=== PATIENT | female | born 1995 | race Caucasian/White ===

== ENCOUNTER 2018-02-16 14:21 | Emergency (ER) | payer OTHER, MEDICAID ==
[~2018-02-16] VITALS: Ht 170.2 cm; Wt 61.7 kg
[2018-02-16] MEDS ORDERED: LEXAPRO20 MG PO (14:43)
[2018-02-16] MEDS ORDERED: SEROQUEL 50 MG50 MG PO (14:43)
[2018-02-16] MEDS ORDERED: XANAX1 MG PO (14:43)
[2018-02-16] MEDS ORDERED: SYNTHROID50 MCG PO (14:43)
[2018-02-16] MEDS ORDERED: HYDROCODONE-AP1 EAC6 PO (16:12)
[2018-02-16 16:31] VITALS: BP 122/65
== END 2018-02-16 16:32 | disposition home or self-care (01) ==
LOC: M.ERS 14:21
DX: M25.572 Pain in left ankle and joints of left foot (principal); M54.5 Low back pain; Z88.6 Allergy status to analgesic agent; Z88.8 Allergy status to other drugs, medicaments and biological substances

== ENCOUNTER 2018-08-07 19:00 | Emergency (ER) | payer OTHER, MEDICAID ==
[~2018-08-07] VITALS: Ht 170.2 cm; Wt 59.0 kg
[~2018-08-07 19:00] MED LIST: HYDROCODONE-AP1 EAC6 PO; LEXAPRO20 MG PO; SEROQUEL 50 MG50 MG PO; SYNTHROID50 MCG PO; XANAX1 MG PO
[2018-08-07] MEDS ORDERED: CARAFATE 1 GM TA1 G1 PO (19:22)
[2018-08-07] MEDS ORDERED: LANSOPRAZOLE30 MG PO (19:23)
[2018-08-07 19:32] LABS: ABSOLUTE EOSINOPHILS 0.1 thou/uL (0.0-0.7); ABSOLUTE LYMPHOCYTES 2.5 thou/uL (0.8-5.3); ABSOLUTE MONOCYTES 0.6 thou/uL (0.0-1.2); ABSOLUTE NEUTROPHILS 3.8 thou/uL (1.6-8.1); BASOPHILS 0.5 %; EOSINOPHILS 0.8 %; HEMATOCRIT 33.7 % (37.0-47.0); LYMPHOCYTES 35.8 %; MCH 31.9 pg (26.0-34.0); MCHC 35.5 g/dL (28.0-37.0); MCV 89.9 fL (80.0-100.0); MONOCYTES 7.9 %; MPV 8.2 fl. (7.2-11.1); NUCLEATED RBCS 0 /100WBC; PLATELET COUNT* 230 thou/uL (150-400); RBC 3.74 mil/uL (4.20-5.00); RDW-CV 12.4 % (10.5-14.5)
[2018-08-07 19:47] LABS: CALCIUM 8.9 mg/dL (8.5-10.1); CREATININE 0.7 mg/dL (0.6-1.3); POTASSIUM 3.5 mmol/L (3.5-5.1)
[2018-08-07 19:50] LABS: ALBUMIN 4.3 g/dL (3.4-5.0); TOTAL BILIRUBIN 0.5 mg/dL (<0.1-1.0); TOTAL PROTEIN 7.5 g/dL (6.4-8.2)
[2018-08-07] MEDS ORDERED: NORCO 5-325 TA1 EACH PO (21:53)
[2018-08-07] MEDS ORDERED: ZOFRAN ODT4 MG PO (21:53)
[2018-08-07 22:15] VITALS: BP 139/84
--- NOTE | 2018-08-08 10:15 | EKG ---
[place] [address] ELECTROCARDIOGRAM REPORT Name: JESSIE GARZA [id number] Admission: 08/07/18 Attend Phys: Discharge: 08/07/18 Date of : [birth year] Report #: [id number] THIS REPORT FOR: //name// [facility] ED Test Date: 2018-08-07 Test Time: 20:04:26 Pat Name: JESSIE GARZA Department: Room: Gender: F Mangle Feeder: Louis APONTE : 1995 Requested By: Merly Martinez Order Number: [id number] MD: Torito Curry Measurements Intervals [place] Rate: 96 P: 90 SC: 128 QRS: 72 QRSD: 84 T: 31 QT: 356 QTc: 450 Interpretive Statements Sinus rhythm Probable left atrial enlargement Minimal ST depression, inferior leads No previous ECG available for comparison Electronically Signed On 08-08-2018 10:15:12 [employer] by Torito Curry [email or web address] <ELECTRONICALLY SIGNED> By: Torito Curry MD, [facility] 08/08/18 1015 2003 03 Torito Curry MD, FACC /EPI
== END 2018-08-07 22:19 | disposition still patient (30) ==
LOC: M.ERS 19:00
PROVIDERS: Nurse Practitioner Family
DX: K27.9 Peptic ulcer, site unspecified, unspecified as acute or chronic, without hemorrhage or perforation (principal); R11.2 Nausea with vomiting, unspecified; F41.9 Anxiety disorder, unspecified; Z88.6 Allergy status to analgesic agent; Z88.8 Allergy status to other drugs, medicaments and biological substances